=== PATIENT | female | born 2000 | race Caucasian/White ===

== ENCOUNTER 2020-11-24 15:46 | Emergency (ER) | payer BC ==
[~2020-11-24] VITALS: Ht 167.6 cm; Wt 64.9 kg
[~2020-11-24 15:46] MED LIST: BIRTHCONTROL PO; CENTANY30 GM TP; NAPROSYN500 MG PO; NORTRIPTYLINE H10 M1 PO; ROBAXIN 750 MG750 M1 PO
[2020-11-24] MEDS ORDERED: BUPROPION HCL150 M1 PO (15:59)
[2020-11-24] MEDS ORDERED: ONDANSETRON ODT4 MG PO (15:59)
[2020-11-24 17:19] LABS: URINE BILIRUBIN NEGATIVE (Negative); URINE BLOOD NEGATIVE (Negative); URINE CLARITY CLEAR; URINE COLOR YELLOW; URINE GLUCOSE-RANDOM NEGATIVE (Negative); URINE KETONES NEGATIVE (Negative); URINE LEUKOCYTES-REFLEX NEGATIVE (Negative); URINE NITRITE-REFLEX NEGATIVE (Negative); URINE PROTEIN NEGATIVE (Negative); URINE SPECIFIC GRAVITY <= 1.005 (1.005-1.030); URINE UROBILINOGEN 0.2 E.U./dl (0.2-1.0)
[2020-11-24] MEDS ORDERED: NIGHTTIME SLEEP25 M1 PO (17:58)
[2020-11-24] MEDS ORDERED: VISTARIL 25 MG25 M1 PO (17:58)
[2020-11-24 18:17] VITALS: BP 136/86
== END 2020-11-24 18:19 | disposition home or self-care (01) ==
LOC: M.ERS 15:46
PROVIDERS: Physician Assistant
DX: F41.9 Anxiety disorder, unspecified (principal); G47.00 Insomnia, unspecified; Z88.2 Allergy status to sulfonamides; Z88.1 Allergy status to other antibiotic agents; Z79.899 Other long term (current) drug therapy